=== PATIENT | female | born 1965 | race Caucasian/White ===

== ENCOUNTER 2018-03-10 15:37 | Emergency (ER) | payer OTHER ==
[2018-03-10] MEDS ORDERED: Haloperidol INJ IV/IM* 5 MG/ML AMP IM ONE (15:41)
[2018-03-10] MEDS ORDERED: LORazepam INJ* 2 MG/ML 1 ML VIAL IV PUSH ONE (15:41)
[2018-03-10] MEDS ORDERED: LORazepam INJ* 2 MG/ML 1 ML VIAL IM ONE (15:42)
[2018-03-10 16:31] LABS: ABS Basophils 0.1 10^3/ul (0-0.2); ABS Eosinophils 0.2 10^3/ul (0-0.6); ABS Lymphocytes 1.7 10^3/ul (1.0-4.8); ABS Monocytes 0.4 10^3/ul (0-0.8); ABS Neutrophils 5.5 10^3/ul (1.5-7.7); ABS Nucleated RBC 0 10^3/ul; Hematocrit 46 % (35-47); Hemoglobin 15.6 g/dl (12.0-16.0); Lymphocyte % 21.1 %; Mean Corpuscular HGB Conc 34 g/dl (31-36); Mean Corpuscular Hemoglobin 33 pg (27-31); Mean Corpuscular Volume 98 fL (80-97); Mean Platelet Volume 8.1 fL (7.4-10.4); Nucleated Red Blood Cells % 0.1; Platelet Count 313 10^3/ul (150-450); Red Blood Count 4.69 10^6/ul (4.00-5.40); Red Cell Distribution Width 12 % (10.5-15); White Blood Count 7.8 10^3/ul (3.5-10.8)
[2018-03-10 16:46] LABS: Urine Appearance Clear; Urine Bacteria Absent (Absent); Urine Bilirubin Negative (Negative); Urine Blood 1+ (Negative); Urine Color Colorless; Urine Glucose Negative (Negative); Urine Ketones Negative (Negative); Urine Nitrite Negative (Negative); Urine Protein Negative (Negative); Urine Red Blood Cell Absent (Absent); Urine Specific Gravity 1.003 (1.010-1.030); Urine Urobilinogen Negative (Negative); Urine White Blood Cell Absent (Absent)
[2018-03-10] MEDS ORDERED: KETAMINE HCL* 50 MG/ML 10 ML VIAL ONE (16:51)
[2018-03-10] MEDS ORDERED: KETAMINE HCL* 50 MG/ML 10 ML VIAL IM ONE (16:52)
[2018-03-10 17:06] LABS: ALT 32 U/L (7-52); AST 24 U/L (13-39); Albumin/Globulin Ratio 1.9 (1-3); Alkaline Phosphatase 99 U/L (34-104); Anion Gap 9 mmol/L (2-11); BUN/Creatinine Ratio 20.6 (8-20); Blood Urea Nitrogen 14 mg/dL (6-24); CO2 Carbon Dioxide 26 mmol/L (22-32); Calcium 9.5 mg/dL (8.6-10.3); Chloride 110 mmol/L (101-111); EGFR Non-African American 89.8 (>60); Globulin 2.7 g/dL (2-4); Glucose 126 mg/dL (70-100); Potassium 4.4 mmol/L (3.5-5.0); Sodium 145 mmol/L (135-145); Total Protein 7.7 g/dL (6.4-8.9)
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
[2018-03-10 17:18] LABS: Barbiturates Urine Screen None Detected (None Detect); Benzodiazepine Urine Screen None Detected (None Detect); Urine Cannabinoids Screen None Detected (None Detect)
[2018-03-10 17:41] LABS: Acetaminophen < 15 mcg/mL; Alcohol 288 mg/dL (<10); Salicylate < 2.50 mg/dL (<30)
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
[2018-03-10 18:09] LABS: TSH (Thyroid Stimulating Horm) 2.15 mcIU/mL (0.34-5.60)
[2018-03-10 21:10] VITALS: BP 150/100
== END 2018-03-10 21:00 | disposition home or self-care (01) ==
LOC: ED 15:37
DX: F10.129 Alcohol abuse with intoxication, unspecified (principal); R45.6 Violent behavior
CPT/HCPCS: 36415; 80053; 80307; 80320; 80329; 81003; 81015; 83605; 84443; 85025; 96372; 96374; 99282; G0480